=== PATIENT | male | born 1965 | race African-American/Black ===

== ENCOUNTER 2022-08-21 16:16 | Inpatient (IN) | payer OTHER ==
[2022-08-21 16:56] VITALS: BMI 27.8
[2022-08-21] MEDS ORDERED: cloNIDine HCL 0.1 MG TABLET PO ONE ×2 (17:00)
[2022-08-21] MEDS ORDERED: NALOXONE HCL (KLOXXADO) 8 MG SPRAY NS PRN (17:33)
[2022-08-21] MEDS ORDERED: MAG HYDROX/AL HYDROX/SIMETH 30 ML UNIT-DOSE CUP PO PRN (17:33)
[2022-08-21] MEDS ORDERED: P-EPHED 60MG/TRIPROLIDI 2.5MG TABLET PO PRN (17:33)
[2022-08-21] MEDS ORDERED: LOPERAMIDE HCL 2 MG CAPSULE PO PRN (17:33)
[2022-08-21] MEDS ORDERED: NICOTINE POLACRILEX 2 MG GUM BUC PRN (17:33)
[2022-08-21] MEDS ORDERED: IBUPROFEN 600 MG TABLET (FP) PO PRN (17:33)
[2022-08-21] MEDS ORDERED: POLYETHYLENE GLYCOL (HEALTHYLAX) 3350 17 GM PACKET PO PRN (17:33)
[2022-08-21] MEDS ORDERED: AMMONIUM LACTATE 12% LOTION 225 GM BOTTLE TP PRN (17:33)
[2022-08-21] MEDS ORDERED: COLLOIDAL OATMEAL 1 BAR EACH TP PRN (17:33)
[2022-08-21] MEDS ORDERED: MAGNESIUM HYDROX 2400MG/30ML ORAL SUSPENSION 30 ML CUP PO PRN (17:33)
[2022-08-21] MEDS ORDERED: hydrOXYzine PAMOATE 25 MG CAPSULE (FP) PO PRN (17:33)
[2022-08-21] MEDS ORDERED: BENZOCAINE/MENTHOL (CHLORASEPTIC ) LOZENGE MM PRN (17:33)
[2022-08-21] MEDS ORDERED: IBUPROFEN 400 MG TABLET (FP) PO PRN (17:33)
[2022-08-21] MEDS ORDERED: NALOXONE HCL 0.4 MG/ML VIAL IM PRN (17:33)
[2022-08-21] MEDS ORDERED: guaiFENesin 600 MG TABLET.ER (FP) PO PRN (17:33)
[2022-08-21] MEDS ORDERED: ACETAMINOPHEN 325 MG TABLET (FP) PO PRN (17:33)
[2022-08-21] MEDS ORDERED: BENZONATATE 200 MG CAPSULE PO PRN (17:33)
[2022-08-21] MEDS ORDERED: METHOCARBAMOL 500 MG TABLET PO PRN (17:36)
[2022-08-21] MEDS ORDERED: LISINOPRIL 10 MG TABLET ONE (18:24)
[2022-08-21] MEDS ORDERED: LISINOPRIL 10 MG TABLET PO ONE (18:30)
[2022-08-21] MEDS ORDERED: TUBERCULIN PPD 5 TU/0.1ML VIAL ID ONE (19:00)
[2022-08-21] MEDS ORDERED: TUBERCULIN PPD 5 TU/0.1ML SYRINGE (IN PATIENT USE ONLY) ID ONE (19:00)
[2022-08-21] MEDS: THIAMINE HCL 100 MG TABLET (FP) PO SCH (21:12)
[2022-08-21] MEDS: levETIRAcetam 500 MG TABLET (FP) PO SCH (21:14)
[2022-08-21] MEDS: LIDOCAINE PATCH REMOVAL MC SCH (21:14)
[2022-08-21] MEDS ORDERED: levETIRAcetam 500 MG TABLET (FP) PO SCH (22:00)
[2022-08-21] MEDS ORDERED: MELATONIN 5 MG TABLETS PO SCH (22:00)
[2022-08-21] MEDS ORDERED: cloNIDine HCL 0.1 MG TABLET PO SCH (22:00)
[2022-08-22] MEDS ORDERED: methaDONE HCL 10 MG TABLET PO SCH (09:00)
[2022-08-22] MEDS: methaDONE 40 MG, methaDONE 30 MG PO SCH (09:11)
[2022-08-22] MEDS ORDERED: ONDANSETRON *ODT* 4 MG TABLET SL PRN (09:22)
[2022-08-22] MEDS ORDERED: MELATONIN 5 MG TABLETS PO SCH (09:35)
[2022-08-22] MEDS ORDERED: LISINOPRIL HCTZ PO SCH (10:00)
[2022-08-22] MEDS ORDERED: FLU VACC QS2022-23(6MOS UP)/PF 60 MCG/0.5 ML SYRINGE IM ONE (10:00)
[2022-08-22] MEDS ORDERED: CLONIDINE HCL 0.3 MG PO SCH (10:00)
[2022-08-22 11:29] LABS: HEMATOCRIT 32.7 % (35.4-49); HEMOGLOBIN 10.8 GM/dL (11.7-16.9); MCH 33.2 pg (25.7-33.7); MEAN CELL VOLUME 100.5 fl (80-96); MEAN PLT VOLUME 9.1 fl (7.5-11.1); PLATELET COUNT 137 10^3/uL (134-434); RBC 3.25 M/mm3 (4.00-5.60); RDW 13.6 % (11.9-15.9); WHITE BLOOD COUNT 3.5 K/mm3 (4.0-10.0)
[2022-08-22] MEDS: HYDROCHLOROTHIAZIDE 25 MG TABLET (FP) PO SCH (11:30)
[2022-08-22] MEDS: LISINOPRIL 20 MG TABLET PO SCH (11:30)
[2022-08-22 11:31] LABS: URINE APPEARANCE CLEAR; URINE BILIRUBIN NEGATIVE (NEGATIVE); URINE COLOR YELLOW; URINE GLUCOSE (UA) NEGATIVE (NEGATIVE); URINE KETONE NEGATIVE (NEGATIVE); URINE LEUK ESTERASE NEGATIVE (NEGATIVE); URINE NITRITE NEGATIVE (NEGATIVE); URINE PROTEIN NEGATIVE (NEGATIVE); URINE UROBILINOGEN 0.2 mg/dL (0.2-1.0)
[2022-08-22] MEDS: NICOTINE 14 MG/24 HOURS TOPICAL PATCH TD SCH (11:31)
[2022-08-22] MEDS: PRENATAL VITAMINS W/ FOLIC ACID TABLET (FP) PO SCH (11:31)
[2022-08-22] MEDS: LIDOCAINE 5% TOPICAL PATCH TP SCH (11:31)
[2022-08-22] MEDS: levETIRAcetam 500 MG TABLET (FP) PO SCH ×2 (11:31→21:12)
[2022-08-22 11:34] LABS: POTASSIUM 5.1 mmol/L (3.5-5.1)
[2022-08-22] MEDS: cloNIDine HCL 0.1 MG TABLET PO SCH ×2 (11:35→21:12)
[2022-08-22 11:36] LABS: CALCIUM 9.2 mg/dL (8.5-10.1)
[2022-08-22 11:37] LABS: ALBUMIN 3.1 g/dl (3.4-5.0); BLOOD UREA NITROGEN 34.8 mg/dL (7-18)
[2022-08-22 11:40] LABS: CREATININE 2.1 mg/dL (0.55-1.3)
[2022-08-22 11:41] LABS: BILIRUBIN,TOTAL 0.3 mg/dL (0.2-1)
[2022-08-22 11:42] LABS: TOT PROT 6.1 g/dl (6.4-8.2)
[2022-08-22 12:43] LABS: SYPHILIS W/ RPR CONF NON-REACTIVE (NONREACTIVE)
[2022-08-22] MEDS: THIAMINE HCL 100 MG TABLET (FP) PO SCH (21:11)
[2022-08-22] MEDS: LIDOCAINE PATCH REMOVAL MC SCH (21:12)
[2022-08-23] MEDS: methaDONE 40 MG, methaDONE 30 MG PO SCH (06:28)
[2022-08-23 07:06] VITALS: TEMP 97.3
[2022-08-23] MEDS ORDERED: methaDONE HCL 10 MG TABLET PO ONE (07:26)
[2022-08-23] MEDS ORDERED: methaDONE 80 MG, methaDONE 20 MG PO ONE (08:22)
[2022-08-23 09:09] VITALS: RESP 17
[2022-08-23] MEDS: LIDOCAINE 5% TOPICAL PATCH TP SCH (10:09)
[2022-08-23] MEDS: cloNIDine HCL 0.1 MG TABLET PO SCH (10:10)
[2022-08-23] MEDS: LISINOPRIL 20 MG TABLET PO SCH (10:10)
[2022-08-23] MEDS: NICOTINE 14 MG/24 HOURS TOPICAL PATCH TD SCH (10:10)
[2022-08-23] MEDS: levETIRAcetam 500 MG TABLET (FP) PO SCH (10:10)
[2022-08-23] MEDS: HYDROCHLOROTHIAZIDE 25 MG TABLET (FP) PO SCH (10:10)
[2022-08-23] MEDS: PRENATAL VITAMINS W/ FOLIC ACID TABLET (FP) PO SCH (10:11)
[2022-08-23 11:16] VITALS: BP 156/101; PULSE 51
[2022-08-24] MEDS ORDERED: methaDONE HCL 10 MG TABLET PO SCH ×2 (06:00)
== END 2022-08-23 11:33 | disposition short-term general hospital (02) | DRG 772 ==
LOC: YASAS 16:16 → Y3W 18:35
PROVIDERS: ADMIT Allergy & Immunology; ATTEND Psychiatry & Neurology Pain Medicine
PROC: HZ42ZZZ Group Counseling for Substance Abuse Treatment, Cognitive-Behavioral (ICD-10-PCS; principal; 2022-08-21)
DX: F11.20 Opioid dependence, uncomplicated (principal); F10.20 Alcohol dependence, uncomplicated; F14.20 Cocaine dependence, uncomplicated; F17.210 Nicotine dependence, cigarettes, uncomplicated; F41.9 Anxiety disorder, unspecified; D64.9 Anemia, unspecified; I10 Essential (primary) hypertension; R07.1 Chest pain on breathing; R06.02 Shortness of breath; R79.89 Other specified abnormal findings of blood chemistry; Z28.310 Unvaccinated for COVID-19; Z28.9 Immunization not carried out for unspecified reason; Z88.0 Allergy status to penicillin; Z91.018 Allergy to other foods
CPT/HCPCS: 36415; 80053; 81003; 82728; 83540; 83550; 84466; 85027; 86780; 86803; 93005; 93010; C9803-CS; Q0162; U0003; U0005

== ENCOUNTER 2022-08-23 11:55 | Emergency (ER) | payer OTHER ==
[2022-08-23 12:06] VITALS: BMI 28.1
[2022-08-23 13:22] LABS: BASO % 0.2 % (0-2.0); EOS % 5.6 % (0-4.5); HEMATOCRIT 32.6 % (35.4-49); HEMOGLOBIN 10.8 GM/dL (11.7-16.9); LYMPH % 34.5 % (8-40); MCH 33.1 pg (25.7-33.7); MEAN CELL VOLUME 100.3 fl (80-96); MEAN PLT VOLUME 8.9 fl (7.5-11.1); MONO % 9.2 % (3.8-10.2); NEUT % 50.5 % (42.8-82.8); PLATELET COUNT 132 10^3/uL (134-434); RBC 3.25 M/mm3 (4.00-5.60); RDW 13.7 % (11.9-15.9); WHITE BLOOD COUNT 4.2 K/mm3 (4.0-10.0)
[2022-08-23 13:46] LABS: ALBUMIN 3.1 g/dl (3.4-5.0); BLOOD UREA NITROGEN 34.3 mg/dL (7-18); CALCIUM 9.1 mg/dL (8.5-10.1); MAGNESIUM 2.2 mg/dL (1.8-2.4)
[2022-08-23 13:49] LABS: PHOSPHOROUS 4.2 mg/dL (2.5-4.9)
[2022-08-23 13:50] LABS: BILIRUBIN,TOTAL 0.3 mg/dL (0.2-1); TOT PROT 6.1 g/dl (6.4-8.2)
[2022-08-23 13:51] LABS: CREATININE 2.1 mg/dL (0.55-1.3)
[2022-08-23 14:00] VITALS: BP 140/88; PULSE 55; RESP 18
== END 2022-08-23 14:01 | disposition short-term general hospital (02) ==
LOC: JER 11:55
DX: R07.9 Chest pain, unspecified (principal); Z20.822 Contact with and (suspected) exposure to COVID-19
CPT/HCPCS: 0241U-QW; 36415; 80053; 82553; 82962; 83690; 83735; 83880; 84100; 84484; 85025; 93005; 93010; 99284-25